=== PATIENT | male | born 1980 | race African-American/Black ===

== ENCOUNTER → 2016-05-28 | Outpatient (CLI) | payer OTHER | LOC: M SLEEP 21:00 | PROVIDERS: ATTEND Nurse Practitioner Adult Health | DX: G47.33 Obstructive sleep apnea (adult) (pediatric) (principal) ==

== ENCOUNTER → 2016-09-11 | Outpatient (CLI) | payer OTHER | LOC: M SLEEP 09-10 19:45 | PROVIDERS: ATTEND Nurse Practitioner Adult Health | DX: G47.33 Obstructive sleep apnea (adult) (pediatric) (principal) ==

== ENCOUNTER → 2016-10-06 | Outpatient (CLI) | payer OTHER ==
--- NOTE | 2016-10-10 12:12 | SLEEPCENT ---
DATE OF PROCEDURE: 10/06/2016 ORDERED BY: HERVE Penny Nocturnal polysomnography was performed for re-titration of pressure therapy in this patient with obstructive sleep apnea syndrome. For testing, a [employer] Quattro full face mask of large size was used and initial pressure of 13 cm of water pressure was applied to the circuit and the lights were extinguished. 6 hours and 39 minutes of data were reviewed. Of these, 356 minutes of sleep were identified. Sleep latency was mildly prolonged at 14 minutes. Rapid eye movement (REM) latency was more so prolonged at 190 minutes. Sleep architecture was fairly good with minimal fragmentation but sleep progression was less than optimal. There was only REM period appreciated. Overall sleep efficiency was 90%. The patient's EKG showed a sinus rhythm with an average heart rate of 68 beats per minute. EEG showed fairly normal waveforms for awake and sleep. Some mild alpha intrusion is noted into non-REM stages. In an effort to identify optimal sleep progression, pressure therapy was reduced to 9 cm of water. The patient was able to sleep through REM, however, hypoventilatory oxygen desaturations prompted the addition of supplemental oxygen. Best sleep was seen on a continuous positive airway pressure (CPAP) pressure of +9 with 2 liters of oxygen bled through the system. IMPRESSION: Obstructive sleep apnea syndrome (G47.33). RECOMMENDATION: Nightly use of pressure therapy 9 cm of water. 2 liters of oxygen will be necessary to address hypoventilatory oxygen desaturations in order to maintain a saturation of 90% plus.
== END ==
LOC: M SLEEP 19:51
PROVIDERS: ATTEND Nurse Practitioner Adult Health
DX: G47.33 Obstructive sleep apnea (adult) (pediatric) (principal)